=== PATIENT | male | born 1940 | race Caucasian/White ===

== ENCOUNTER → 2016-08-11 | Outpatient (CLI) | payer MEDICARE, OTHER ==
[~2016-08-11] MED LIST: ALTACE5 M1 PO; INDOMETHACIN50 MG PO; KLONOPIN 0.5MG0.5 MG PO; LAMICTAL25 MG PO; LEXAPRO20 MG PO; LIPITOR20 MG PO; PLAVIX 75MG TAB75 MG PO; ZANTAC 300300 MG PO
== END ==
LOC: LAB 16:24
DX: R73.09 Other abnormal glucose (principal); Z12.5 Encounter for screening for malignant neoplasm of prostate; E78.2 Mixed hyperlipidemia; E23.0 Hypopituitarism; R20.2 Paresthesia of skin; I10 Essential (primary) hypertension; M10.9 Gout, unspecified

== ENCOUNTER → 2016-10-16 | Outpatient (CLI) | payer MEDICARE, OTHER ==
[2014-05-24 19:22] VITALS: BP 162/79
== END ==
LOC: LAB 10:22
DX: I10 Essential (primary) hypertension (principal); R44.1 Visual hallucinations; M10.9 Gout, unspecified

== ENCOUNTER → 2016-12-08 | Outpatient (CLI) | payer MEDICARE, OTHER ==
[2014-05-24 19:22] VITALS: BP 162/79
== END ==
LOC: LAB 15:30
DX: M10.9 Gout, unspecified (principal)

== ENCOUNTER → 2017-02-01 | Outpatient (CLI) | payer MEDICARE, OTHER ==
[2014-05-24 19:22] VITALS: BP 162/79
== END ==
LOC: LAB 11:44
DX: M10.9 Gout, unspecified (principal); I10 Essential (primary) hypertension; R73.09 Other abnormal glucose

== ENCOUNTER → 2017-03-26 | Outpatient (CLI) | payer MEDICARE, OTHER ==
[2014-05-24 19:22] VITALS: BP 162/79
== END ==
LOC: CARDREHAB 09:35
DX: R07.89 Other chest pain (principal)
CPT/HCPCS: A9500

== ENCOUNTER → 2017-08-03 | Outpatient (CLI) | payer MEDICARE, OTHER ==
[2014-05-24 19:22] VITALS: BP 162/79
[2017-08-03 11:13] LABS: EOS # 0.1 (0.04-0.40); EOS % 1.5 % (0.0-4.0); HEMATOCRIT 44.2 % (42.0-52.0); HEMOGLOBIN 14.6 g/dL (13.5-18.0); LYMPH# 1.1 (1.50-4.00); MEAN CELL VOLUME 90 fl (78-100); MEAN CORPUSCULAR HEMOGLOBIN 30 pg (27-31); MEAN CORPUSCULAR HGB CONC 33 g/dL (33-37); MONO # 0.7 (0.20-0.80); NEU # 5.6 (1.40-6.50); PLATELET COUNT 188 K/mm3 (130-400); RED BLOOD COUNT 4.94 M/mm3 (4.20-5.60); RED CELL DISTRIBUTION WIDTH 14.6 % (11.5-14.5); WHITE BLOOD COUNT 7.5 K/mm3 (4.8-10.8)
[2017-08-03 11:24] LABS: BUN/CREATININE RATIO 13.7 (6.0-26.0); CALCIUM 9.2 mg/dL (8.4-10.2); TOTAL BILIRUBIN 0.8 mg/dL (0.2-1.3)
[2017-08-03 13:33] LABS: ERYTHROCYTE SEDIMENTATION RATE 11 mm/hr (0-20)
== END ==
LOC: LAB 11:00
PROVIDERS: Internal Medicine
DX: R73.09 Other abnormal glucose (principal); M10.9 Gout, unspecified

== ENCOUNTER → 2017-12-21 | Outpatient (CLI) | payer MEDICARE, OTHER ==
[2014-05-24 19:22] VITALS: BP 162/79
[2017-12-21 12:45] LABS: EOS # 0.1 (0.04-0.40); EOS % 1.3 % (0.0-4.0); HEMATOCRIT 47.6 % (42.0-52.0); HEMOGLOBIN 15.8 g/dL (13.5-18.0); MEAN CELL VOLUME 88 fl (78-100); MEAN CORPUSCULAR HEMOGLOBIN 29 pg (27-31); MEAN CORPUSCULAR HGB CONC 33 g/dL (33-37); MEAN PLATELET VOLUME 10.6 fl (7.4-10.4); MONO # 0.5 (0.20-0.80); NEU # 5.1 (1.40-6.50); PLATELET COUNT 162 K/mm3 (130-400); RED BLOOD COUNT 5.39 M/mm3 (4.20-5.60); RED CELL DISTRIBUTION WIDTH 14.3 % (11.5-14.5); WHITE BLOOD COUNT 6.8 K/mm3 (4.8-10.8)
[2017-12-21 12:53] LABS: ALBUMIN 4.3 g/dL (3.5-5.0); BUN/CREATININE RATIO 14.2 (6.0-26.0); POTASSIUM 4.7 mmol/L (3.6-5.0); TOTAL PROTEIN 7.6 g/dL (6.3-8.2)
[2017-12-21 13:43] LABS: URINE APPEARANCE CLEAR; URINE COLOR YELLOW; URINE PROTEIN(semi-quant) NEGATIVE (NEGATIVE)
[2017-12-21 13:44] LABS: URINE BILIRUBIN NEGATIVE (NEGATIVE); URINE BLOOD NEGATIVE (NEGATIVE); URINE GLUCOSE NEGATIVE (NEGATIVE); URINE KETONE NEGATIVE (NEGATIVE); URINE LEUKOCYTE ESTERASE TRACE (NEGATIVE); URINE NITRATE NEGATIVE (NEGATIVE); URINE UROBILINOGEN NORMAL (NORMAL); URINE WBC 0-1 /hpf (0-3)
[2017-12-21 15:00] LABS: ERYTHROCYTE SEDIMENTATION RATE 4 mm/hr (0-20)
[2017-12-21 23:25] LABS: TESTOSTERONE 420 ng/dL (221-716)
== END ==
LOC: LAB 12:04
PROVIDERS: Internal Medicine
DX: Z12.5 Encounter for screening for malignant neoplasm of prostate (principal); Z12.11 Encounter for screening for malignant neoplasm of colon; R73.09 Other abnormal glucose; E78.5 Hyperlipidemia, unspecified; R20.2 Paresthesia of skin; N52.9 Male erectile dysfunction, unspecified; M10.9 Gout, unspecified

== ENCOUNTER → 2017-12-24 | Outpatient (CLI) | payer MEDICARE, OTHER ==
[2014-05-24 19:22] VITALS: BP 162/79
== END ==
LOC: RAD 10:00
DX: I65.21 Occlusion and stenosis of right carotid artery (principal)

== ENCOUNTER → 2018-01-18 | Outpatient (CLI) | payer MEDICARE, OTHER ==
[2014-05-24 19:22] VITALS: BP 162/79
== END ==
LOC: LAB 12:02
DX: M31.6 Other giant cell arteritis (principal); M10.9 Gout, unspecified

== ENCOUNTER → 2018-07-05 | Outpatient (CLI) | payer MEDICARE, OTHER ==
[2014-05-24 19:22] VITALS: BP 162/79
[2018-07-05 10:19] LABS: EOS # 0.1 (0.04-0.40); EOS % 2.3 % (0.0-4.0); HEMATOCRIT 47.9 % (42.0-52.0); HEMOGLOBIN 15.9 g/dL (13.5-18.0); LYMPH# 1.1 (1.50-4.00); MEAN CELL VOLUME 87 fl (78-100); MEAN CORPUSCULAR HEMOGLOBIN 29 pg (27-31); MEAN CORPUSCULAR HGB CONC 33 g/dL (33-37); MEAN PLATELET VOLUME 9.9 fl (7.4-10.4); MONO # 0.5 (0.20-0.80); NEU # 3.6 (1.40-6.50); PLATELET COUNT 177 K/mm3 (130-400); RED BLOOD COUNT 5.49 M/mm3 (4.20-5.60); RED CELL DISTRIBUTION WIDTH 14.3 % (11.5-14.5); WHITE BLOOD COUNT 5.3 K/mm3 (4.8-10.8)
[2018-07-05 10:34] LABS: ALBUMIN 4.3 g/dL (3.5-5.0); CALCIUM 9.5 mg/dL (8.4-10.2); POTASSIUM 4.3 mmol/L (3.6-5.0); TOTAL BILIRUBIN 0.9 mg/dL (0.2-1.3)
[2018-07-05 11:22] LABS: ERYTHROCYTE SEDIMENTATION RATE 2 mm/hr (0-20)
== END ==
LOC: LAB 09:53
PROVIDERS: Internal Medicine
DX: R73.03 Prediabetes (principal); E78.5 Hyperlipidemia, unspecified; M10.9 Gout, unspecified

== ENCOUNTER → 2018-07-22 | Outpatient (CLI) | payer MEDICARE, OTHER ==
[2014-05-24 19:22] VITALS: BP 162/79
[2018-07-22 18:02] LABS: URINE APPEARANCE CLEAR; URINE BILIRUBIN NEGATIVE (NEGATIVE); URINE BLOOD NEGATIVE (NEGATIVE); URINE COLOR YELLOW; URINE GLUCOSE NEGATIVE (NEGATIVE); URINE KETONE NEGATIVE (NEGATIVE); URINE LEUKOCYTE ESTERASE NEGATIVE (NEGATIVE); URINE NITRATE NEGATIVE (NEGATIVE); URINE PROTEIN(semi-quant) NEGATIVE (NEGATIVE); URINE UROBILINOGEN NORMAL (NORMAL); URINE WBC 0-1 /hpf (0-3)
== END ==
LOC: LAB 16:13
PROVIDERS: Internal Medicine
DX: R73.03 Prediabetes (principal)

== ENCOUNTER → 2019-11-21 | Outpatient (CLI) | payer MEDICARE, OTHER ==
[2014-05-24 19:22] VITALS: BP 162/79
[2019-11-21 12:13] LABS: POTASSIUM 4.4 mmol/L (3.5-5.1)
[2019-11-21 12:14] LABS: ALBUMIN 4.5 g/dL (3.4-4.8)
[2019-11-21 12:15] LABS: CALCIUM 9.6 mg/dL (8.3-10.5)
[2019-11-21 12:16] LABS: TOTAL PROTEIN 6.9 g/dL (6.2-8.1)
[2019-11-21 12:22] LABS: EOS # 0.1 (0.04-0.40); EOS % 1.6 % (0.0-4.0); HEMATOCRIT 45.1 % (42.0-52.0); HEMOGLOBIN 14.9 g/dL (13.5-18.0); LYMPH# 0.9 (1.50-4.00); MEAN CELL VOLUME 92 fl (78-100); MEAN CORPUSCULAR HEMOGLOBIN 30 pg (27-31); MEAN CORPUSCULAR HGB CONC 33 g/dL (33-37); MEAN PLATELET VOLUME 10.6 fl (7.4-10.4); MONO # 0.5 (0.20-0.80); NEU # 4.1 (1.40-6.50); PLATELET COUNT 167 K/mm3 (130-400); RED BLOOD COUNT 4.92 M/mm3 (4.20-5.60); RED CELL DISTRIBUTION WIDTH 14.8 % (11.5-14.5); WHITE BLOOD COUNT 5.7 K/mm3 (4.8-10.8)
[2019-11-21 12:36] LABS: URINE APPEARANCE CLEAR; URINE BILIRUBIN NEGATIVE (NEGATIVE); URINE BLOOD NEGATIVE (NEGATIVE); URINE COLOR YELLOW; URINE GLUCOSE NEGATIVE (NEGATIVE); URINE KETONE NEGATIVE (NEGATIVE); URINE LEUKOCYTE ESTERASE NEGATIVE (NEGATIVE); URINE MUCUS PRESENT (NOT PRESENT); URINE NITRATE NEGATIVE (NEGATIVE); URINE PROTEIN(semi-quant) NEGATIVE (NEGATIVE); URINE UROBILINOGEN NORMAL (NORMAL); URINE WBC 0-1 /hpf (0-3)
[2019-11-21 13:30] LABS: ERYTHROCYTE SEDIMENTATION RATE 1 mm/hr (0-20)
[2019-11-21 21:50] LABS: CREATININE OTHER SOURCE 110 mg/dL (())
[2019-11-21 22:05] LABS: TESTOSTERONE 333 ng/dL (221-716)
== END ==
LOC: LAB 11:43
PROVIDERS: Internal Medicine
DX: Z12.5 Encounter for screening for malignant neoplasm of prostate (principal); Z12.11 Encounter for screening for malignant neoplasm of colon; E78.5 Hyperlipidemia, unspecified; M10.9 Gout, unspecified; R73.09 Other abnormal glucose; R20.2 Paresthesia of skin

== ENCOUNTER → 2020-02-20 | Outpatient (CLI) | payer MEDICARE, OTHER ==
[2014-05-24 19:22] VITALS: BP 162/79
[2020-02-20 11:58] LABS: EOS # 0.1 (0.04-0.40); EOS % 1.7 % (0.0-4.0); HEMATOCRIT 46.5 % (42.0-52.0); HEMOGLOBIN 15.6 g/dL (13.5-18.0); LYMPH# 1.2 (1.50-4.00); MEAN CELL VOLUME 89 fl (78-100); MEAN CORPUSCULAR HEMOGLOBIN 30 pg (27-31); MEAN CORPUSCULAR HGB CONC 34 g/dL (33-37); MEAN PLATELET VOLUME 9.9 fl (7.4-10.4); MONO # 0.5 (0.20-0.80); NEU # 3.4 (1.40-6.50); PLATELET COUNT 171 K/mm3 (130-400); RED CELL DISTRIBUTION WIDTH 14.2 % (11.5-14.5); WHITE BLOOD COUNT 5.2 K/mm3 (4.8-10.8)
[2020-02-20 12:03] LABS: ALBUMIN 4.3 g/dL (3.4-4.8); POTASSIUM 4.4 mmol/L (3.5-5.1)
[2020-02-20 12:04] LABS: CALCIUM 9.3 mg/dL (8.3-10.5)
[2020-02-20 12:06] LABS: TOTAL PROTEIN 6.8 g/dL (6.2-8.1)
[2020-02-20 12:07] LABS: TOTAL BILIRUBIN 0.7 mg/dL (0.2-1.2)
[2020-02-20 12:08] LABS: URINE APPEARANCE CLEAR; URINE BILIRUBIN NEGATIVE (NEGATIVE); URINE BLOOD NEGATIVE (NEGATIVE); URINE COLOR YELLOW; URINE GLUCOSE NEGATIVE (NEGATIVE); URINE KETONE NEGATIVE (NEGATIVE); URINE LEUKOCYTE ESTERASE NEGATIVE (NEGATIVE); URINE NITRATE NEGATIVE (NEGATIVE); URINE PROTEIN(semi-quant) 1+ mg/dL (NEGATIVE); URINE UROBILINOGEN NORMAL (NORMAL); URINE WBC 0-1 /hpf (0-3)
[2020-02-20 12:53] LABS: ERYTHROCYTE SEDIMENTATION RATE 2 mm/hr (0-20)
[2020-02-21 02:01] LABS: TESTOSTERONE 483 ng/dL (221-716)
== END ==
LOC: LAB 11:41
PROVIDERS: Internal Medicine
DX: Z12.5 Encounter for screening for malignant neoplasm of prostate (principal); Z12.11 Encounter for screening for malignant neoplasm of colon; M10.9 Gout, unspecified; R73.09 Other abnormal glucose; R20.2 Paresthesia of skin

== ENCOUNTER → 2020-02-22 | Outpatient (CLI) | payer MEDICARE, OTHER ==
[2014-05-24 19:22] VITALS: BP 162/79
== END ==
LOC: RAD 11:36
DX: I67.89 Other cerebrovascular disease (principal); G31.9 Degenerative disease of nervous system, unspecified; R73.09 Other abnormal glucose; N52.9 Male erectile dysfunction, unspecified; R20.2 Paresthesia of skin; R41.3 Other amnesia
CPT/HCPCS: A9585

== ENCOUNTER → 2020-10-28 | Outpatient (CLI) | payer MEDICARE, OTHER ==
[2014-05-24 19:22] VITALS: BP 162/79
[2020-10-28 15:57] LABS: BASO # 0.01 (0.02-0.10); EOS # 0.07 (0.04-0.40); EOS % 1.2 % (0.0-4.0); HEMATOCRIT 48.7 % (42.0-52.0); HEMOGLOBIN 16.5 g/dL (13.5-18.0); LYMPH# 1.14 (1.50-4.00); MEAN CELL VOLUME 90 fl (78-100); MEAN CORPUSCULAR HEMOGLOBIN 30 pg (27-31); MEAN CORPUSCULAR HGB CONC 34 g/dL (33-37); MEAN PLATELET VOLUME 10.4 fl (7.4-10.4); MONO # 0.31 (0.20-0.80); NEU # 4.09 (1.40-6.50); PLATELET COUNT 158 K/mm3 (130-400); RED BLOOD COUNT 5.42 M/mm3 (4.20-5.60); RED CELL DISTRIBUTION WIDTH 14.2 % (11.5-14.5); WHITE BLOOD COUNT 5.6 K/mm3 (4.8-10.8)
[2020-10-28 16:06] LABS: ALBUMIN 4.4 g/dL (3.4-4.8); POTASSIUM 4.2 mmol/L (3.5-5.1)
[2020-10-28 16:07] LABS: CALCIUM 9.5 mg/dL (8.3-10.5)
[2020-10-28 16:10] LABS: TOTAL BILIRUBIN 0.9 mg/dL (0.2-1.2)
== END ==
LOC: LAB 15:28
PROVIDERS: Internal Medicine
DX: R73.03 Prediabetes (principal)

== ENCOUNTER → 2020-12-09 | Outpatient (CLI) | payer MEDICARE, OTHER ==
[2020-12-09 15:27] LABS: ALBUMIN 4.2 g/dL (3.4-4.8); POTASSIUM 4.3 mmol/L (3.5-5.1)
[2020-12-09 15:28] LABS: CALCIUM 9.3 mg/dL (8.3-10.5)
[2020-12-09 15:29] LABS: TOTAL PROTEIN 6.8 g/dL (6.2-8.1)
[2020-12-09 15:31] LABS: TOTAL BILIRUBIN 0.9 mg/dL (0.2-1.2)
[2020-12-09 15:53] LABS: URINE APPEARANCE CLEAR; URINE BILIRUBIN NEGATIVE (NEGATIVE); URINE BLOOD NEGATIVE (NEGATIVE); URINE COLOR YELLOW; URINE GLUCOSE NEGATIVE (NEGATIVE); URINE KETONE NEGATIVE (NEGATIVE); URINE LEUKOCYTE ESTERASE NEGATIVE (NEGATIVE); URINE MUCUS PRESENT (NOT PRESENT); URINE NITRATE NEGATIVE (NEGATIVE); URINE PROTEIN(semi-quant) NEGATIVE (NEGATIVE); URINE UROBILINOGEN NORMAL (NORMAL); URINE WBC 0-1 /hpf (0-3)
== END ==
LOC: LAB 15:07
PROVIDERS: Internal Medicine
DX: I10 Essential (primary) hypertension (principal); R35.0 Frequency of micturition